=== PATIENT | female | born 1975 | race American Indian/Alaskan Native ===

== ENCOUNTER 2017-03-25 14:42 | Emergency (ER) | payer OTHER ==
[2017-03-25 14:48] VITALS: TEMP 98.1; O2SAT 100
[2017-03-25] MEDS ORDERED: Sodium Chloride 0.9% 1,000 ML IV STA (15:00)
[2017-03-25 15:27] LABS: BASO # 0.1 K/uL (0.0-0.2); BASO % 1.2 % (0.0-2.0); EOS # 0.1 K/uL (0.0-0.7); EOS % 1.5 % (0.0-4.0); HEMATOCRIT 35.3 % (34.0-47.0); LYMPH % 22.3 % (20.0-40.0); MEAN CELL VOLUME 84.4 fl (81.0-99.0); MEAN CORPUSCULAR HEMOGLOBIN 28.3 pg (27.0-31.0); MEAN CORPUSCULAR HGB CONC 33.5 g/dL (33.0-37.0); MEAN PLATELET VOLUME 9.2 fl (7.2-11.7); MONO # 0.5 K/uL (0.0-0.8); MONO % 5.1 % (0.0-10.0); NEUT # 6.4 K/uL (1.8-7.0); NEUT % 69.9 % (50.0-75.0); WHITE BLOOD COUNT 9.1 K/uL (4.8-10.8)
[2017-03-25 15:38] LABS: BLOOD UREA NITROGEN 16 mg/dl (7-17); CALCIUM 9.4 mg/dL (8.4-10.2); CARBON DIOXIDE 23 mmol/L (22-30); CHLORIDE 108 mmol/L (98-107); GFR AFRICAN-AMERICAN > 60; GLUCOSE,RANDOM 111 mg/dL (65-105); POTASSIUM 3.7 MMOL/L (3.6-5.0); SODIUM 141 mmol/l (132-148)
--- NOTE | 2017-03-25 16:30 | ED PDOC ---
HPI: Abdomen Time Seen by Provider: 03/25/17 14:50 Chief Complaint (Nursing): Abdominal Pain Chief Complaint (Provider): Pelvic pain History Per: Patient History/Exam Limitations: no limitations Onset/Duration Of Symptoms: Days Current Symptoms Are (Timing): Still Present Quality Of Discomfort: Sharp, Cramping Associated Symptoms: denies: Fever, Nausea, Vomiting, Diarrhea Alleviating Factors: None Last Bowel Movement: Today Additional Complaint(s): 42 y/o female presents to the emergency department with a complaint of a pelvic pain, vaginal bleeding, generalized weakness, and dizziness after recent endometrial biopsy completed by [facility] in preparation for possible hysterectomy due to menorrhagia. Patient was advised by wood molder to presents to the emergency department for blood work because of persistent bleeding and pelvic pain after biopsy last week. Reports she started taking iron pills recently and does not have the biopsy results yet. Denies vomiting, diarrhea, fever, or any urinary symptoms. Also of note states was seen at [facility] ED and had US which told had fibroids , she was unaware of bloodwork results. Abnormal Vaginal Bleeding: Yes Past Medical History Reviewed: Historical Data, Nursing Documentation, Vital Signs Vital Signs: Last Vital Signs Temp 98.1 F 03/25/17 14:45 Pulse 79 03/25/17 14:45 Resp 16 03/25/17 14:45 BP 114/72 03/25/17 14:45 Pulse Ox 100 03/25/17 22:32 - Medical History Other PMH: Fibroids and ovarian cysts - Surgical History Other surgeries: Ectopic many years ago, foot and knee surgery - Family History Family History: States: Unknown Family Hx - Home Medications Home Medications: Ambulatory Orders Medication Instructions Recorded traMADol [Ultram] 50 mg PO TID PRN #14 tab 03/25/17 - Allergies Allergies/Adverse Reactions: Allergies Allergy/AdvReac Type Severity Reaction Status Date / Time celecoxib [From Celebrex] Allergy URTICARIA Verified 03/25/17 14:45 relaphin Allergy RASH Uncoded 03/25/17 14:45 Review of Systems ROS Statement: Except As Marked, All Systems Reviewed And Found Negative Constitutional: Positive for: Weakness (Generalized). Negative for: Fever Gastrointestinal: Negative for: Vomiting, Diarrhea Genitourinary Female: Positive for: Vaginal Bleeding, Pelvic Pain. Negative for : Dysuria, Frequency, Incontinence, Hematuria Neurological: Positive for: Dizziness Physical Exam - Reviewed Nursing Documentation Reviewed: Yes - Physical Exam Appears: Positive for: Non-toxic, No Acute Distress Skin: Positive for: Warm, Dry, Pallor (Mild) Pelvic Exam: Positive for: Other (Mild left-sided pelvic tenderness) Neurologic/Psych: Positive for: Alert, Oriented (x3) - Laboratory Results Result Diagrams: 03/25/17 15:20 03/25/17 15:20 - ECG O2 Sat by Pulse Oximetry: 100 (RA) Pulse Ox Interpretation: Normal Medical Decision Making Medical Decision Making: Time: 14:51 Initial impression: Blood work r/o anemia. Initial plan: --BMP --Urine Preg & DIP --CBC w/ diff --Morphine 2mg IV (Given due to allergy to NSAIDS) --Sodium Chloride 1L IV --Reevaluation Time: 17:11 --Percocet 5/325 mg --Pelvis/Transvag US Time: 20:02 --Morphine 4 mg IV US Pelvis, Transvagina FINDINGS: Uterus: There are multiple nabothian cysts in the cervix. Endometrium is poorly defined. Endometrium measures approximately 13 mm in width. Right ovary: Right ovary measures approximately 2.35 x 2.32 x 2.26 cm. There is expected blood flow on Doppler imaging Left ovary: Left ovary measures approximately 2.65 x 1.3 x 2.62 cm.There are multiple small follicles. There is intraovarian blood flow. Free fluid: There is no free fluid. Bladder: Bladder is empty IMPRESSION: Unremarkable ovaries, no torsion; nabothian cysts in the cervix; poorly defined prominent endometrium Time: 20:03 --Pending Abd & Pelvis IV Contrast CT Time: 2100 --Abdomen/Pelvis CT FINDINGS: Lower thorax: Heart size is normal. There is a small hiatal hernia. There is atelectasis and scarring at the lung bases. ABDOMEN: Liver: There is fatty infiltration of the liver. Gallbladder and bile ducts: unremarkable Pancreas: unremarkable Spleen: Spleen is unremarkable. There is an accessory spleen in the left upper quadrant. Adrenals: unremarkable Kidneys and ureters: unremarkable Stomach and bowel: Stomach is partially distended. Rotation is normal. There is no obstruction. Terminal ileum is unremarkable. Appendix is not visualized. There is no pericecal inflammation. There is moderate stool in the colon. There is minimal diverticulosis Appendix: See stomach and bowel PELVIS: Bladder: unremarkable Reproductive: Uterus is in mildly enlarged. Adnexa are unremarkable. ABDOMEN and PELVIS: Intraperitoneal space: There is no free air or free fluid. Bones/joints: There are degenerative changes in the osseus structures. Soft tissues: There is a fat-containing umbilical hernia. Vasculature: Vascular structures are unremarkable. There are phleboliths. Lymph nodes: There is no pathologic adenopathy. IMPRESSION: Fatty liver, no acute solid visceral abnormality; possible constipation, no bowel obstruction Additional findings as described above Time: 2100 Upon provider reevaluation patient is feeling better, is medically stable, and requires no further treatment in the ED at this time. Patient will be discharged home with Rx for Tramadol 50 mg. Counseling was provided and all questions were answered regarding diagnosis and need for follow up with referred clinic. There is agreement to discharge plan. Return if symptoms persist or worsen. Clinical Impression: Pelvic Pain and Anemia Scribe Attestation: Documented by Dory Bolanos, acting as a scribe for Mert Swenson MD. Provider Scribe Attestation: All medical record entries made by the Scribe were at my direction and personally dictated by me. I have reviewed the chart and agree that the record accurately reflects my personal performance of the history, physical exam, medical decision making, and the department course for this patient. I have also personally directed, reviewed, and agree with the discharge instructions and disposition. Disposition - Clinical Impression Clinical Impression: Pelvic pain, Anemia - Patient ED Disposition Is Patient to be Admitted: No Counseled Patient/Family Regarding: Studies Performed, Diagnosis, Need For Followup, Rx Given - Disposition Disposition: Routine/Home Disposition Time: 21:00 Condition: STABLE Additional Instructions: See your [employer] [employer] doctor in 2-3 days for further testing and followup. Return to ER for any worse or new symptoms. Continue iron supplements as prior directed. Prescriptions: traMADol [Ultram] 50 mg PO TID PRN #14 tab PRN Reason: Pain, Moderate (4-7) Instructions: Pelvic Pain in Women (ED), Anemia (ED) Forms: [employer] (Armenian) Print Language: UZBEK
[2017-03-25] MEDS ORDERED: Oxycodone/Acetaminophen 5/325 mg Tab ONE (17:10)
[2017-03-25] MEDS ORDERED: Oxycodone/Acetaminophen 5/325 mg Tab PO STA (17:11)
[2017-03-25] MEDS ORDERED: Iohexol 300 100 ML IJ ONE (21:02)
[2017-03-25] MEDS ORDERED: Sodium Chloride 0.9% 50 ML IV ONE (21:02)
--- NOTE | 2017-03-25 21:12 | US ---
EXAM: US Pelvis Complete, Transabdominal CLINICAL HISTORY: 42 years old, female; Pain; Pelvic pain; Additional info: Llq pain, recent endometrial bx ADDITIONAL HISTORY: Endometrial biopsy one week ago with pelvic pain and bleeding for 8 days TECHNIQUE: Real-time transabdominal pelvic ultrasound (complete) with image documentation. COMPARISON: There are no prior studies for comparison. FINDINGS: Uterus: Uterus measures approximately 11.1 x 6.7 x 6.7 cm. Endometrium is poorly visualized and difficult to measure. Right ovary: Right ovary could not be visualized. There are no right adnexal masses Left ovary: Left ovary could not be visualized. There are no left adnexal masses Free fluid: There is no free fluid. Bladder: ..... Bladder is partially distended. IMPRESSION: Limited evaluation of uterus and adnexa due to body habitus and technique EXAM: US Pelvis, Transvaginal EXAM DATE/TIME: 03/25/2017 5:18 PM CLINICAL HISTORY: 42 years old, female; Pain; Pelvic pain; Additional info: Llq pain, recent endometrial bx TECHNIQUE: Real-time transvaginal pelvic ultrasound (complete) with image documentation. Transvaginal imaging was used for better evaluation of the endometrium and adnexa. COMPARISON: There are no prior studies for comparison. FINDINGS: Uterus: There are multiple nabothian cysts in the cervix. Endometrium is poorly defined. Endometrium measures approximately 13 mm in width. Right ovary: Right ovary measures approximately 2.35 x 2.32 x 2.26 cm. There is expected blood flow on Doppler imaging Left ovary: Left ovary measures approximately 2.65 x 1.3 x 2.62 cm.There are multiple small follicles. There is intraovarian blood flow. Free fluid: There is no free fluid. Bladder: Bladder is empty IMPRESSION: Unremarkable ovaries, no torsion; nabothian cysts in the cervix; poorly defined prominent endometrium - .....
[2017-03-25 22:45] VITALS: BP 121/67; PULSE 77; RESP 18
--- NOTE | 2017-03-26 08:46 | CT ---
PROCEDURE: CT Abdomen and Pelvis with contrast HISTORY: L pelvic pain, hx endometrial biopsy 1wk ago COMPARISON: None. TECHNIQUE: Contrast dose: 95 mL of Omnipaque 300. Axial and reformatted coronal and sagittal CT images of the abdomen and pelvis were obtained after IV contrast administration. Radiation dose: Total exam DLP = 1071.97 mGy-cm. This CT exam was performed using one or more of the following dose reduction techniques: Automated exposure control, adjustment of the mA and/or kV according to patient size, and/or use of iterative reconstruction technique. FINDINGS: LOWER THORAX: Small bibasilar atelectasis are noted. LIVER: Mild diffuse low-attenuation of the liver and mild hepatomegaly are noted suggestive of hepatic steatosis. GALLBLADDER AND BILE DUCTS: Unremarkable. PANCREAS: Unremarkable. No gross lesion or ductal dilatation. SPLEEN: Unremarkable. ADRENALS: Unremarkable. No mass. KIDNEYS AND URETERS: Unremarkable. No hydronephrosis. No solid mass. VASCULATURE: Unremarkable. No aortic aneurysm. BOWEL: Unremarkable. No obstruction. No gross mural thickening. APPENDIX: No evidence of appendicitis. PERITONEUM: Unremarkable. No free fluid. No free air. LYMPH NODES: Unremarkable. No enlarged lymph nodes. BLADDER: Unremarkable. REPRODUCTIVE: The uterus is heterogeneous mildly enlarged. BONES: No acute fracture. OTHER FINDINGS: There is a small fat containing umbilical hernia. IMPRESSION: No CT evidence of acute pathology in the abdomen and pelvis. Mild hepatomegaly and findings suggestive of mild hepatic steatosis. Mildly enlarged heterogeneous uterus may contains fibroid. 2.1 centimeter fat containing umbilical hernia. Preliminary report was submitted by [facility].
== END 2017-03-25 22:45 | disposition home or self-care (01) ==
LOC: H.ER 14:42
DX: K42.9 Umbilical hernia without obstruction or gangrene (principal); D64.9 Anemia, unspecified
CPT/HCPCS: 74177; 76830; 76856; 80048; 84703; 85025; 96374; 96376; 99282; J2270; J7040; Q9967